=== PATIENT | male | born 1945 | race Caucasian/White ===

== ENCOUNTER → 2020-03-05 12:25 | Outpatient (CLI) | payer MEDICARE, SELFPAY ==
[2020-03-05 13:58] LABS: Coronavirus 19 IgG Antibody Positive (Negative)
[2020-03-05 14:03] LABS: Coronavirus 19 IgM Antibody Positive (Negative)
== END ==
PROVIDERS: Visit Provider Ophthalmology
DX: Z01.812 Encounter for preprocedural laboratory examination (principal); Z86.19 Personal history of other infectious and parasitic diseases
CPT/HCPCS: 36415; 86328

== ENCOUNTER → 2020-03-05 16:05 | Outpatient (CLI) | payer MEDICARE, SELFPAY | PROVIDERS: PCP Ophthalmology; Visit Provider Ophthalmology | DX: Z01.812 Encounter for preprocedural laboratory examination (principal); Z86.16 Personal history of COVID-19; H25.11 Age-related nuclear cataract, right eye | CPT/HCPCS: 36415; 86328; U0003 ==

== ENCOUNTER 2020-03-06 06:45 | Day surgery (SDC) | payer MEDICARE, SELFPAY ==
[2020-03-01 09:25] VITALS: BMI 33.7
[2020-03-06] VITALS (7 sets, daily range): BP systolic 123–161; BP diastolic 61–86; PULSE 61–71; RESP 16–20; TEMP 36.3–36.4; O2SAT 94–96
[2020-03-06 07:19] LABS: POC Glucose,Bedside 232 (70-110)
== END 2020-03-06 09:20 | disposition home or self-care (01) ==
LOC: OR 06:47
PROVIDERS: PCP Family Medicine; Visit Provider Ophthalmology
DX: H25.813 Combined forms of age-related cataract, bilateral (principal); H11.001 Unspecified pterygium of right eye; E11.9 Type 2 diabetes mellitus without complications; I10 Essential (primary) hypertension; E78.5 Hyperlipidemia, unspecified; Z88.6 Allergy status to analgesic agent; Z79.84 Long term (current) use of oral hypoglycemic drugs; Z79.4 Long term (current) use of insulin; Z79.899 Other long term (current) drug therapy
CPT/HCPCS: 66984; 82962; V2632

== ENCOUNTER → 2020-03-19 12:53 | Outpatient (CLI) | payer MEDICARE, SELFPAY ==
[2020-03-19 15:21] LABS: Coronavirus 19 IgG Antibody Negative (Negative); Coronavirus 19 IgM Antibody Negative (Negative)
== END ==
PROVIDERS: Visit Provider Ophthalmology
DX: Z01.812 Encounter for preprocedural laboratory examination (principal); Z20.822 Contact with and (suspected) exposure to COVID-19; H25.12 Age-related nuclear cataract, left eye
CPT/HCPCS: 36415; 86328

== ENCOUNTER 2020-03-20 07:16 | Day surgery (SDC) | payer MEDICARE, SELFPAY ==
[2020-03-14 14:42] VITALS: BMI 33.9
[2020-03-20] VITALS (9 sets, daily range): BP systolic 128–186; BP diastolic 60–77; PULSE 58–68; RESP 18–22; TEMP 36.3; O2SAT 95–99
[2020-03-20 08:05] LABS: POC Glucose,Bedside 205 (70-110)
== END 2020-03-20 09:43 | disposition home or self-care (01) ==
LOC: OR 07:18
PROVIDERS: PCP Family Medicine; Visit Provider Ophthalmology
DX: H25.813 Combined forms of age-related cataract, bilateral (principal); H21.81 Floppy iris syndrome; H11.001 Unspecified pterygium of right eye; E11.9 Type 2 diabetes mellitus without complications; I10 Essential (primary) hypertension; E78.5 Hyperlipidemia, unspecified; Z90.49 Acquired absence of other specified parts of digestive tract; Z88.6 Allergy status to analgesic agent; Z79.899 Other long term (current) drug therapy
CPT/HCPCS: 66982; 82962; V2632